=== PATIENT | female | born 1985 | race African-American/Black ===

== ENCOUNTER 2018-06-12 09:35 | Emergency (ER) | payer MEDICAID, OTHER ==
[~2018-06-12] VITALS: Ht 152.4 cm; Wt 55.0 kg
[2018-06-12] MEDS ORDERED: SODIUM CHLORIDE 0.9% 1,000 ML IV ONE (09:47)
[2018-06-12] MEDS ORDERED: MAGNESIUM/ALUMINUM HYDROXIDE/SIMETHICONE 30ML UDC PO STA (09:47)
[2018-06-12] MEDS ORDERED: FAMOTIDINE 20MG/2ML VIAL IV STA (09:47)
[2018-06-12] MEDS ORDERED: ONDANSETRON HCL 4MG/2ML INJ IV STA (09:47)
[2018-06-12 10:42] LABS: BASOPHILS % 0.6 % (0.0-2.0); EOSINOPHILS % 0.8 % (0.0-5.0); HEMATOCRIT. 40.9 % (36.0-48.0); HEMOGLOBIN. 13.7 g/dL (12.0-16.0); LYMPHOCYTES % 27.7 % (20.0-50.0); MEAN CORPUSCULAR HEMOGLOBIN 30.5 pg (28.0-32.0); MEAN CORPUSCULAR VOLUME 91.2 fL (81.0-99.0); MEAN PLATELET VOLUME 8.4 fl (7.4-10.4); MONOCYTES % 6.9 % (2.0-8.0); PLATELET 365 x1000/uL (130-400); RED BLOOD CELL COUNT 4.49 mill/uL (4.2-5.4); RED CELL DISTRIBUTION WIDTH 15.1 % (11.6-14.6)
[2018-06-12 10:46] LABS: CHLORIDE 106 mEq/L (98-107)
[2018-06-12 10:48] LABS: INR 1.1; PROTHROMBIN TIME 10.9 sec (9.1-11.1)
[2018-06-12 11:32] LABS: CLARITY URINE CLEAR (CLEAR); COLOR URINE YELLOW (YELLOW); KETONES URINE NEGATIVE (NEGATIVE); LEUKOCYTE ESTERASE URINE TRACE (NEGATIVE); NITRITE URINE NEGATIVE (NEGATIVE); OCCULT BLOOD URINE NEGATIVE (NEGATIVE); PROTEIN URINE NEGATIVE (NEGATIVE); SPECIFIC GRAVITY URINE 1.001 (1.005-1.030); UROBILINOGEN URINE 0.2 E.U./dL (0.2-1.0)
[2018-06-12] MEDS ORDERED: IOHEXOL-300 100 ML BOTTLE ONE (14:22)
[2018-06-12 14:42] VITALS: BP 120/90
== END 2018-06-12 15:24 | disposition home or self-care (01) ==
LOC: ER 09:35
DX: K29.70 Gastritis, unspecified, without bleeding (principal); R10.13 Epigastric pain; R11.2 Nausea with vomiting, unspecified; R19.7 Diarrhea, unspecified
CPT/HCPCS: 36415; 74177; 80053; 81003; 81025; 83690; 85025; 85610; 93005; 96361; 96374; 96375; 99284; J2405; J3490; J7030; Q9967